=== PATIENT | female | born 1995 | race Caucasian/White ===

== ENCOUNTER 2021-06-28 19:04 | Emergency (ER) | payer MEDICAID, OTHER ==
[~2021-06-28] VITALS: Ht 160 cm; Wt 90.9 kg
[2021-06-28 19:38] VITALS: BP 129/89
--- NOTE | 2021-06-28 19:45 | NUR ---
PT AMBULATED TO BED #2
--- NOTE | 2021-06-28 20:20 | NUR ---
26 Y/O F BIB FOR ABD CRAMPING AND SPOTTING YESTERDAY. PT STATES SHE SOAKED 1 PAD BUT HAS NOT BLEEDING SINCE, ONLY A SMALL AMOUNT OF BROWN DISCHARGE SINCE THEN. PT IS . LAST TWO PREGNANCIES WERE NORMNAL WITH NO COMPLICATIONS. PAIN LEVEL IS 2/10. PT LAST BM YESTERDAY NO CONSTIPATION OR DIARRHEA. SKIN IS PINK/WARM/DRY; AAOX4 WITH EVEN AND STEADY GAIT; LUNGS CLEAR BL; HR EVEN AND REGULAR; PT DENIES ANY FEVER, CP, SOB, OR COUGH AT THIS TIME; VSS; PATIENT POSITIONED FOR COMFORT; HOB ELEVATED; BEDRAILS UP X2; BED DOWN. ER MD MADE AWARE OF PT STATUS. PMH: NONE ALLERGIES: NONE PT DENIES SMOKING/ DRINKING/ DRUG USE
--- NOTE | 2021-06-28 20:40 | NUR ---
CALLED LAB TO COME AND GET BLOOD
[2021-06-28 21:09] LABS: BASOPHILS % (AUTO) 0.3 % (0.0-2.0); EOSINOPHILS # (AUTO) 0.1 K/uL (0-0.4); EOSINOPHILS % (AUTO) 0.8 % (0.0-4.0); HEMATOCRIT 40.1 % (36-48); HEMOGLOBIN 13.2 g/dL (12.0-16.0); LYMPHOCYTES # (AUTO) 2.7 K/uL (2.5-16.5); LYMPHOCYTES % (AUTO) 24.6 % (20.5-51.1); MEAN CORPUSCULAR HEMOGLOBIN 28 pg (27-31); MEAN CORPUSCULAR HGB CONC 33 g/dL (33-37); MEAN CORPUSCULAR VOLUME 84.3 fL (80-94); MONOCYTES # (AUTO) 0.8 K/uL (0.8-1.0); MONOCYTES % (AUTO) 7.4 % (1.7-9.3); NEUTROPHILS # (AUTO) 7.4 K/uL (1.8-7.7); NEUTROPHILS % (AUTO) 66.9 % (42.2-75.2); PLATELET COUNT (AUTO) 374 K/uL (140-450); RED BLOOD CELL COUNT(AUTO) 4.76 MIL/uL (4.20-5.40); RED CELL DISTRIBUTION WIDTH 15.6 % (11.6-13.7)
--- NOTE | 2021-06-28 21:22 | NUR ---
COMMUNICATED WITH PT WE ARE AWAITING TEST RESULTS. WA LAYING SUPINE IN BED. X1 SIDE RAIL UP.
--- NOTE | 2021-06-28 22:30 | NUR ---
PT TO PROVIDE NEW URINE SAMPLE
[2021-06-28 22:52] VITALS: BP 132/80
--- NOTE | 2021-06-28 22:52 | NUR ---
Patient discharged with v/s stable. Written and verbal after care instructions given and explained. Patient verbalized understanding. Ambulatory with steady gait. All questions addressed prior to discharge. Advised to follow up with PMD. DR. SANDHU DISCHARGING TO PT HOWEVER PT LEFT WITHOUT SIGNING DC PAPERWORK
--- NOTE | 2021-06-28 23:20 | NUR ---
The patient's care was reviewed and supervised by Cecilia Rashid RN.
== END 2021-06-28 22:52 | disposition home or self-care (01) ==
LOC: MED 19:04
DX: O20.0 Threatened abortion (principal); Z3A.01 Less than 8 weeks gestation of pregnancy
CPT/HCPCS: 36415; 76817; 81025; 84702; 85025; 86901; 99284; Q0092